=== PATIENT | male | born 1980 | race Two or more races ===

== ENCOUNTER 2022-05-11 17:11 | Emergency (ER) | payer MEDICARE, MEDICAID ==
[~2022-05-11] VITALS: Ht 182.9 cm; Wt 100.0 kg
[2022-05-11] MEDS ORDERED: KETAMINE 50mg/ML 10ml Vial (500mg/10ml) IV ONE (19:30)
[2022-05-11] MEDS ORDERED: IBU600T PO (20:21)
[2022-05-11] MEDS ORDERED: CEPH-510 PO ×2 (20:21)
[2022-05-11] MEDS ORDERED: cefTRIAXone 1GM/50ML D5W 50 ML IV ONE (20:30)
[2022-05-11] MEDS ORDERED: TETANUS-DIPTH-ACEL PERTUSSIS 0.5ML SYR Tdap IM ONE (20:30)
[2022-05-11] MEDS ORDERED: LEVO-28 PO (20:41)
[2022-05-11] MEDS ORDERED: levoFLOXacin 500 MG TAB PO ONE (20:45)
[2022-05-11 22:00] VITALS: BP 124/64
== END 2022-05-11 22:05 | disposition home or self-care (01) ==
LOC: EDBD 17:11 → ER 17:11
DX: S43.004A Unspecified dislocation of right shoulder joint, initial encounter (principal); S60.511A Abrasion of right hand, initial encounter; V89.2XXA Person injured in unspecified motor-vehicle accident, traffic, initial encounter; Y93.89 Activity, other specified; Y92.89 Other specified places as the place of occurrence of the external cause; Y99.8 Other external cause status
CPT/HCPCS: 23650; 72125; 73020; 73030; 73120; 73560; 74176; 90471; 90715; 99152; 99153